=== PATIENT | female | born 1965 | race Caucasian/White ===

== ENCOUNTER → 2016-11-05 | Outpatient (CLI) | payer BC ==
[~2016-11-05] MED LIST: ALL180 PO; BCPILLS PO; HYOS1TAB PO; LEVO137T14 PO; MOME50SP5; OMNARIS; OXYC-57 PO; SYMIN/8045 INH; XYZAL PO
--- NOTE | 2016-11-08 13:43 | POLYSOMNOGRAPH REPORT ---
CLINICAL DATA: 51-year-old female with BMI of 35.[address] Alexander Ashley and Dr. Howell with history of snoring, witnessed apnea, and excessive daytime sleepiness. Her sleep is unrefreshing. On the evening of 11/05/2016, a home sleep apnea test was performed using a Esphion type 3 monitor. RECORDING RESULTS: Total recording time was 9.7 hours. The patient's estimated sleep time and monitoring time was 6.9 hours. RESPIRATORY DATA: Mild sleep apnea/hypopnea was documented. The JOSE A was 6.4. There were 44 hypopneic episodes. The longest respiratory event recorded was 56 seconds. OXIMETRY DATA: Oxygen saturation albert was 88%. Mean saturation was 94%. Time below 89% for 0 minutes. HEART RATE DATA: Heart rates ranged from 46-69 beats per minute. SNORING DATA: Snoring was recorded throughout the night. IMPRESSION: Mild obstructive sleep apnea/hypopnea with an JOSE A of 6.4. RECOMMENDATIONS: The patient may benefit from weight loss, use of an oral appliance, or repeat sleep study with CPAP. Clinical correlation is needed. LA[place]
== END | disposition home or self-care (01) ==
LOC: C.NEUR 10:19
PROVIDERS: ATTEND Internal Medicine Pulmonary Disease
DX: G47.33 Obstructive sleep apnea (adult) (pediatric) (principal)

== ENCOUNTER → 2016-11-20 | Outpatient (CLI) | payer BC ==
--- NOTE | 2016-11-20 12:38 | MAMMOGRAPHY REPORT ---
BILATERAL DIGITAL SCREENING MAMMOGRAM TOMOSYNTHESIS WITH CAD: 11/20/2016 CLINICAL HISTORY: Routine screening. Patient has no complaints. TECHNIQUE: Breast tomosynthesis in addition to standard 2D mammography was performed. Current study was also evaluated with a Computer Aided Detection (CAD) system. COMPARISON: Comparison is made to exams dated: 11/01/2015 mammogram, 08/25/2013 mammogram, 10/25/2014 mammogram, and 04/29/2012 mammogram - [facility]. BREAST COMPOSITION: The tissue of both breasts is heterogeneously dense, which may obscure small ma sses. FINDINGS: No suspicious masses, calcifications, or areas of architectural distortion are noted in e ither breast. There has been no significant interval change compared to prior exams. IMPRESSION: ACR BI-RADS CATEGORY 1: NEGATIVE There is no mammographic evidence of malignancy. A 1 year screening mammogram is recommended. The p atient will receive written notification of the results. Approximately 10% of breast cancers are not detected with mammography. A negative mammographic repor t should not delay biopsy if a clinically suggestive mass is present. Lluvia Gunter M.D. ah/:11/20/2016 11:53:00 Line Crew Supervisor: Destinee Garcia RT(R)(M), [facility] letter sent: Normal 1/2 BI-RADS Code: ACR BI-RADS Category 1: Negative
== END | disposition home or self-care (01) ==
LOC: C.MAMM 08:43
PROVIDERS: ATTEND Family Medicine
DX: Z12.31 Encounter for screening mammogram for malignant neoplasm of breast (principal)

== ENCOUNTER → 2017-11-26 | Outpatient (CLI) | payer OTHER ==
--- NOTE | 2017-11-26 15:36 | MAMMOGRAPHY REPORT ---
BILATERAL DIGITAL SCREENING MAMMOGRAM TOMOSYNTHESIS WITH CAD: 11/26/2017 CLINICAL HISTORY: Routine screening. Patient has no complaints. TECHNIQUE: Breast tomosynthesis in addition to standard 2D mammography was performed. Current study was also evaluated with a Computer Aided Detection (CAD) system. COMPARISON: Comparison is made to exams dated: 11/20/2016 mammogram, 11/01/2015 mammogram, 10/25/2014 ma mmogram, 08/25/2013 mammogram, 04/29/2012 mammogram - [facility], and 06/02/2009. BREAST COMPOSITION: The tissue of both breasts is heterogeneously dense, which may obscure small mas ses. FINDINGS: No suspicious masses, calcifications, or areas of architectural distortion are noted in ei ther breast. There has been no significant interval change compared to prior exams. IMPRESSION: ACR BI-RADS CATEGORY 1: NEGATIVE There is no mammographic evidence of malignancy. A 1 year screening mammogram is recommended. The pa tient will receive written notification of the results. Approximately 10% of breast cancers are not detected with mammography. A negative mammographic report should not delay biopsy if a clinically suggestive mass is present. Lluvia Gunter M.D. ah/:11/26/2017 12:39:54 Mems Device Scientist: Destinee REAL(Yanique)(M), [facility] letter sent: Normal 1/2 BI-RADS Code: ACR BI-RADS Category 1: Negative
== END | disposition home or self-care (01) ==
LOC: C.MAMM 09:39
PROVIDERS: ATTEND Family Medicine
DX: Z12.31 Encounter for screening mammogram for malignant neoplasm of breast (principal)